=== PATIENT | female | born 1945 | race Caucasian/White ===

== ENCOUNTER 2018-04-08 17:26 | Emergency (ER) | payer SELFPAY ==
[2018-04-08] MEDS ORDERED: TRAMADOL HCL 50 MG TABLET PO ONE (18:40)
[2018-04-08] MEDS ORDERED: LIDOCAINE 5% (700 MG) TRANSDERMAL ADH..PATCH TP ONE (18:42)
--- NOTE | 2018-04-08 18:43 | ER Document Report ---
ED Medical Screen (RME) - General Chief Complaint: Neck Pain >24hrs old Stated Complaint: NECK INJURY Time Seen by Provider: 04/08/18 18:37 Mode of Arrival: Wheelchair Information source: Patient Notes: Patient presents complaining of posterior neck pain for the past several months that worsened over the past few weeks. Patient reports temperature of 99 at home. Patient denies any known injury. Pain occasionally will radiate to the left upper extremity. Pain will radiate to the posterior aspect of the head. TRAVEL OUTSIDE OF THE [place] IN LAST 30 DAYS: No Past Medical History - Social History Chew tobacco use (# tins/day): No Frequency of alcohol use: None Drug Abuse: None Renal/ Medical History: Denies: Hx Peritoneal Dialysis Past Surgical History: Reports: Hx Hysterectomy Physical Exam - Vital signs Vitals: Temp Pulse Resp BP Pulse Ox 98.5 F 75 16 170/100 H 95 04/08/18 17:39 04/08/18 17:39 04/08/18 17:39 04/08/18 17:39 04/08/18 17:39 - HEENT Neck: Supple, Other - Posterior cervical tenderness. No: Meningismus Course - Vital Signs Vital signs: Temp Pulse Resp BP Pulse Ox 98.5 F 75 16 170/100 H 95 04/08/18 17:39 04/08/18 17:39 04/08/18 17:39 04/08/18 17:39 04/08/18 17:39 Doctor's Discharge - Discharge Referrals: LOCALMD,NO [Primary Care Provider] - Follow up as needed
[2018-04-08 20:12] LABS: ABSOLUTE EOSINOPHILS # (AUTO) 0.4 10^3/uL (0.0-0.6); ABSOLUTE LYMPHOCYTES (AUTO) 1.2 10^3/uL (0.5-4.7); ABSOLUTE MONOCYTES (AUTO) 0.4 10^3/uL (0.1-1.4); ABSOLUTE NEUT (AUTO) 2.5 10^3/uL (1.7-8.2); BASOPHILS % (AUTO) 0.6 % (0-2); EOSINOPHILS % (AUTO) 9.4 % (0-6); HEMATOCRIT 36.5 % (36.0-47.0); HEMOGLOBIN 12.1 g/dL (12.0-15.5); LYMPHOCYTES % (AUTO) 25.7 % (13-45); MEAN CORPUSCULAR HEMOGLOBIN 26.1 pg (27.0-33.4); MEAN CORPUSCULAR HGB CONC 33.2 g/dL (32.0-36.0); MEAN CORPUSCULAR VOLUME 79 fl (80-97); MONOCYTES % (AUTO) 8.6 % (3-13); PLATELET COUNT 248 10^3/uL (150-450); RED BLOOD COUNT 4.64 10^6/uL (3.72-5.28); RED CELL DISTRIBUTION WIDTH 14.6 % (11.5-14.0); SEGMENTED NEUTROPHILS % (AUTO) 55.7 % (42-78); TOTAL CELLS COUNTED % (AUTO) 100 %; WHITE BLOOD COUNT 4.5 10^3/uL (4.0-10.5)
[2018-04-08 20:32] LABS: ANION GAP 8 (5-19); BLOOD UREA NITROGEN 15 mg/dL (7-20); CALCIUM 8.8 mg/dL (8.4-10.2); CARBON DIOXIDE 28 mmol/L (22-30); CHLORIDE 105 mmol/L (98-107); GLUCOSE 92 mg/dL (75-110); POTASSIUM 3.9 mmol/L (3.6-5.0); SODIUM 141.4 mmol/L (137-145)
--- NOTE | 2018-04-09 00:38 | RADIOLOGY REPORT (SQ) ---
EXAM DESCRIPTION: CT HEAD WITHOUT IV CONTRAST COMPLETED DATE/TME: 04/09/2018 00:00 CLINICAL HISTORY: neck/CHATMAN pain, gait instability COMPARISON: None available TECHNIQUE: Axial CT of the head obtained from the skull apex to the skull base without contrast. FINDINGS: No acute intracranial hemorrhage identified. No mass, mass effect, shift of the midline, abnormal extra-axial fluid collection or CT evidence of acute ischemic change identified. The ventricular system and sulcal have normal size and morphology.. Scattered areas of hypodensity throughout the supratentorial white matter are nonspecific and may be related to chronic small vessel ischemic change. The visualized paranasal sinuses and the mastoids are clear. No skull fracture identified. Visualized orbits and globes are unremarkable. Atherosclerotic calcification of the intracranial internal carotid arteries. DLP:1123.58 mGy-cm IMPRESSION: 1. No acute intracranial abnormality by CT criteria. This exam was performed according to our departmental dose-optimization program, which includes automated exposure control, adjustment of the mA and/or kV according to patient size and/or use of iterative reconstruction technique.
--- NOTE | 2018-04-09 00:42 | ER Document Report ---
ED Neck/Back Problem - General Chief Complaint: Neck Pain >24hrs old Stated Complaint: NECK INJURY Time Seen by Provider: 04/08/18 18:37 Mode of Arrival: Ambulatory Information source: Patient TRAVEL OUTSIDE OF THE [place] IN LAST 30 DAYS: No - HPI Notes: 73-year-old female presents with chief complaint to me of neck pain. The pain is severe in the midportion of her neck slightly more to the left radiates to her head and left shoulder. She states she has had the pain she estimates at about 7 years but it is much worse in the last few months. Is much worse with movement. She has been using ibuprofen but not getting much improvement lately. No clear fever though she stated her temperature was 99 but the air conditioning was not working at her house last night when this occurred. She has no cough or cold symptoms rhinorrhea sore throat. No swallowing pain. Denies any focal weakness numbness or tingling otherwise. Denies difficulty with speech. - Related Data Allergies/Adverse Reactions: No Known Allergies Allergy (Unverified 04/09/18 00:53) Past Medical History - General Information source: Patient - Social History Smoking Status: Never Smoker Chew tobacco use (# tins/day): No Frequency of alcohol use: None Drug Abuse: None Family History: Reviewed & Not Pertinent Patient has suicidal ideation: No Patient has homicidal ideation: No Renal/ Medical History: Denies: Hx Peritoneal Dialysis Past Surgical History: Reports: Hx Hysterectomy Review of Systems - Review of Systems -: Yes All other systems reviewed and negative Physical Exam - Vital signs Vitals: Temp Pulse Resp BP Pulse Ox 98.5 F 75 16 170/100 H 95 04/08/18 17:39 04/08/18 17:39 04/08/18 17:39 04/08/18 17:39 04/08/18 17:39 - Notes Notes: GENERAL: VS as per nursing doc. Well-appearing, well-nourished and in no acute distress though she has notable pain with neck movement and range of motion evaluation. HEAD: Atraumatic, normocephalic. EYES: Pupils equal round and reactive to light, extraocular movements intact, sclera anicteric, no conjunctival injection or discharge. ENT: Nares patent, oropharynx clear without exudates, moist mucous membranes. NECK: No adenopathy. No carotid bruits. There is diffuse tenderness in the midportion of the neck with muscular spasm noted over the left paraspinal muscles. LUNGS: Breath sounds clear to auscultation bilaterally and equal. No wheezes rales or rhonchi. HEART: Regular rate and rhythm without murmurs. 2+ equal radial pulses ABDOMEN: Soft, non-tender. BACK: No CVA tenderness. EXTREMITIES: Normal range of motion, no calf tenderness, no edema. NEUROLOGICAL: Cranial nerves intact. Normal speech. Normal sensory and motor exams. No gross gait abnormalities. Normal finger-nose testing, no cerebellar signs. PSYCH: Normal mood, normal affect. SKIN: Warm, dry, normal turgor, no lesions noted. Course - Re-evaluation Re-evalutation: 04/09/18 01:51 Patient improved and did well with the tramadol here. I discussed with her she will need MRI testing and further evaluation due to the severe degenerative changes noted on her CT scan of her neck. She understands warning signs to watch for and agrees to return for any problem or concern. - Vital Signs Vital signs: Temp Pulse Resp BP Pulse Ox 98.2 F 61 15 177/98 H 98 04/09/18 02:25 04/09/18 02:25 04/09/18 02:25 04/09/18 02:25 04/09/18 02:25 - Laboratory Result Diagrams: 04/08/18 19:35 04/08/18 19:35 Laboratory results interpreted by me: 04/08/18 19:35 MCV 79 L MCH 26.1 L RDW 14.6 H Eosinophils % 9.4 H - Diagnostic Test Radiology reviewed: Image reviewed, Reports reviewed - Severe degenerative neck changes Discharge - Discharge Clinical Impression: Neck pain, Cervical disc disease Condition: Good Disposition: HOME, SELF-CARE Additional Instructions: Please contact a primary care physician for further evaluation and treatment of your neck pain. You will likely need an MRI scan. Use caution with the pain medications as they may cause sedation and do have addiction potential. Prescriptions: Tramadol HCl 50 - 100 mg PO Q6H PRN #14 tablet PRN Reason: Referrals: LOCALMD,NO [NO LOCAL MD] - Follow up as needed
[2018-04-09] MEDS ORDERED: TRAMADOL HCL 50 MG TABLET PO ONE (00:43)
--- NOTE | 2018-04-09 00:55 | RADIOLOGY REPORT (SQ) ---
EXAM DESCRIPTION: CT CERVICAL SPINE WITH IV CONTRAST COMPLETED DATE/TME: 04/09/2018 00:00 CLINICAL HISTORY: neck/CHATMAN pain, gait instability COMPARISON: None available TECHNIQUE: Axial CT of the cervical spine obtained following the uncomplicated intravenous administration of 75 mL Omnipaque 350. FINDINGS: Straightening of the cervical lordosis is likely secondary to patient positioning. The atlantoaxial, atlantodental, and occipitoatlantal intervals are now widened. No acute fracture identified. Vertebral body height preserved. Prevertebral soft tissues are unremarkable. There is severe degenerative change of the atlantodental articulation. There is a 0.4 cm anterolisthesis of C3 over C4 which is likely degenerative. Severe loss of intervertebral disc height at C4/5 through C6/7 with fusion at C6/7. Endplate spondylosis and uncovertebral spurring. Multilevel mild to moderate osseous neural foraminal narrowing. No definite osseous central canal narrowing. Severe multilevel facet arthropathy. Visualized skull base is intact. No fracture of the visualized facial bones. Visualized mastoid air cells and paranasal sinuses are well aerated. Visualized thyroid is unremarkable. No cervical lymphadenopathy. No pneumothorax in the visualized lung apices. Atherosclerotic vascular calcification. No enhancing abnormalities identified. DLP: 228 mGy-cm IMPRESSION: 1. No acute fracture or subluxation of the cervical spine. 2. Severe degenerative change of the cervical spine. This exam was performed according to our departmental dose-optimization program, which includes automated exposure control, adjustment of the mA and/or kV according to patient size and/or use of iterative reconstruction technique.
[2018-04-09 02:47] VITALS: BP 177/98
== END 2018-04-09 02:25 | disposition home or self-care (01) ==
LOC: ER 17:26
DX: M54.2 Cervicalgia (principal); M50.30 Other cervical disc degeneration, unspecified cervical region
CPT/HCPCS: 36415; 70450; 72126; 80048; 85025; 99284